=== PATIENT | female | born 2005 | race Caucasian/White ===

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

== ENCOUNTER 2023-05-27 13:06 | Emergency (ER) | payer BC, OTHER ==
[~2023-05-27] VITALS: Ht 165.1 cm; Wt 61.2 kg
[~2023-05-27 13:06] MED LIST changes: +ALTAVERA-28 TA1 EACH PO; +ESCI20 PO; +ONDA4ODT MM
[2023-05-27 13:44] LABS: BASOPHILS ABSOLUTE AUTO 0.04 K/mm3 (0.00-0.23); BASOPHILS PERCENT AUTO 1 % (0-2); EOSINOPHILS ABSOLUTE AUTO 0.13 K/mm3 (0.00-0.68); EOSINOPHILS PERCENT AUTO 2 % (0-6); Hematocrit 45.1 % (33.0-51.0); Hemoglobin 15.8 g/dL (11.5-16.0); IMMATURE GRAN ABSOLUTE AUTO 0.02 K/mm3 (0.00-0.10); IMMATURE GRAN PERCENT AUTO 0 % (0-1); LYMPHOCYTES ABSOLUTE AUTO 1.75 K/mm3 (0.84-5.20); LYMPHOCYTES PERCENT AUTO 20 % (21-46); MONOCYTES ABSOLUTE AUTO 0.33 K/mm3 (0.16-1.47); MONOCYTES PERCENT AUTO 4 % (4-13); Mean Corpuscular HGB 29.5 pg (26.0-34.0); Mean Corpuscular Volume 84 fL (80-100); Mean Platelet Volume 9.8 fL (9.1-12.4); NEUTROPHILS ABSOLUTE AUTO 6.53 K/mm3 (1.96-9.15); NEUTROPHILS PERCENT AUTO 74 % (41-73); Platelet Count 322 K/mm3 (150-400); RDW Coefficient Variation 12.6 % (11.7-14.2); RDW Standard Deviation 38.1 fL (35.1-46.3); Red Blood Cell Count 5.35 M/mm3 (3.80-5.20)
[2023-05-27] MEDS ORDERED: TRAZ50 PO (13:57)
[2023-05-27] MEDS ORDERED: QULIPTA60 MG PO (13:57)
[2023-05-27] MEDS ORDERED: ZOLOFT50 MG PO (13:58)
[2023-05-27] MEDS ORDERED: PROP10 PO (13:58)
[2023-05-27 14:02] LABS: Bun/Creatinine Ratio 13.2 (12.0-20.0); Calcium, Blood 9.5 mg/dL (8.5-10.1); Creatinine, Blood 0.83 mg/dL (0.40-1.00); Potassium, Blood 3.7 mmol/L (3.5-5.5)
[2023-05-27 14:27] LABS: Source, Urine Clean Catch
[2023-05-27 14:34] LABS: Appearance, Urine Clear (Clear); Bilirubin, Urine Neg (Neg); Blood, Urine 3+ (Neg); Color, Urine Yellow (P-Yellow); Glucose Qualitative, Urine Neg (Neg); Ketones, Urine Neg (Neg); Leukocyte Esterase, Urine Neg (Neg); Nitrite, Urine Neg (Neg); Protein, Urine 2+ (Neg); Specific Gravity, Urine 1.015 (1.003-1.022); Urobilinogen, Urine 1+ (Normal); pH, Urine 6.5 (5.0-8.0)
[2023-05-27 14:57] LABS: Hyaline Casts 0-2 /lpf (0-2); Mucus Mod (0-Heavy)
[2023-05-27 14:58] LABS: Bacteria Many /hpf; Squamous Epithelial Cells Few /hpf (Few)
[2023-05-27 16:50] VITALS: BP 128/82
[2023-05-27] MEDS ORDERED: NITR100CA PO (17:22)
== END 2023-05-27 17:07 | disposition home or self-care (01) ==
LOC: ER 13:06
PROVIDERS: Physician Assistant
DX: M46.1 Sacroiliitis, not elsewhere classified (principal); N94.6 Dysmenorrhea, unspecified; Z79.899 Other long term (current) drug therapy
CPT/HCPCS: 74019; 76830; 76856; 80048; 81001; 81025; 84703; 85025; 87086; 96374; 99284-25; J2405